=== PATIENT | male | born 1965 | race Caucasian/White ===

== ENCOUNTER 2021-10-14 19:26 | Emergency (ER) | payer OTHER, SELFPAY ==
[2021-10-14 21:06] VITALS: BP 156/99; PULSE 92; RESP 18; TEMP 36.7; O2SAT 98; BMI 28.7
--- NOTE | 2021-10-14 21:14 | HMH.EDUTC ---
[facility] [place] Disposition Clinical Impression: Viral syndrome Acute bronchitis Qualifiers: Bronchitis organism: unspecified organism Qualified Code(s): J20.9 - Acute bronchitis, unspecified Disposition: Home, Self-Care Condition on Discharge: Good Instructions: Acute Bronchitis, DI for Acute Bronchitis, DI for Viral Syndrome Additional Instructions: rink plenty of fluids. Take tylenol or ibuprofen for pain or fever. Take the medications as directed. Follow up with your regular doctor. GO TO THE ER FOR ANY WORSENING SYMPTOMS Don't start the oral steroids until tomorrow, since you had the shot here today. The cough medication (promethazine dm) will make you drowsy, so don't drive or operate heavy machinery after taking it. Prescriptions: Albuterol Sulfate [Albuterol Sulfate Hfa] 2 puffs IH Q6HP PRN 30 Days #1 each PRN Reason: Shortness Of Breath Transmission Status: Received by [facility] Promethazine/Dextromethorphan [Promethazine-Dm Syrup] 5 ml PO Q6HP PRN #240 ml PRN Reason: Cough Transmission Status: Received by [facility] Benzonatate [Benzonatate 100mg cap] 100 mg PO TIDP PRN #30 cap PRN Reason: Cough Transmission Status: Received by [facility] predniSONE [Deltasone 10mg tablet] 10 mg PO DAILY 9 Days #21 tab Transmission Status: Received by [facility] Azithromycin [Z-Amco 250mg Tab*] 250 mg PO UD DOSE PK #6 tab Transmission Status: Received by [facility] Referrals: Provider,Referral, [Primary Care Provider] - Forms: Work/School Release Time of Disposition: 21:56 Medical Decision Making - Medical Records Medical records reviewed: No: I reviewed the patient's medical records. - [place] Inquiry Pt receiving controlled substance: No Vital Signs: 10/14/21 21:06 10/14/21 21:57 Temperature 98.1 F 98.1 F Temperature Source Oral Pulse Rate 92 H Pulse Rate [Left] 92 H Respiratory Rate 18 18 Blood Pressure 156/99 H Blood Pressure [Right Arm] 156/99 H Blood Pressure Mean [Right Arm] 118 02 Sat by Pulse Oximetry 98 - Lab Data Lab results reviewed: Yes: I reviewed the patient's lab results. Lab Results 10/14/21 21:45: Chlamy pneumoniae PCR Not detected, Adenovirus (PCR) Not detected, B. pertussis DNA (PCR) Not detected, Coronavirus OC43 (PCR) Not detected, Coronavirus HKU1 (PCR) Detected A, Coronavirus 229E (PCR) Not detected, SARS-CoV-2 (PCR) Not detected, Coronavirus NL63 (PCR) Not detected, Human Metapneumovir PCR Not detected, Influenza A (H1) PCR Not detected, Influ A (H1N1/09) PCR Not detected, Influenza A (H3) PCR Not detected, Influenza Type A (PCR) Not detected, Influenza Type B (PCR) Not detected, M. pneumoniae (PCR) Not detected, Parainfluenza 1 (PCR) Not detected, Parainfluenza 2 (PCR) Not detected, Parainfluenza 3 (PCR) Not detected, Parainfluenza 4 (PCR) Not detected, RSV (PCR) Not detected, Entero/Rhino (PCR) Not detected Orders (Tests/Meds): ED MEDICATIONS Discontinued Medications Generic Name Dose Route Start Last Admin Trade Name Freq PRN Reason Stop Dose Admin Azithromycin 500 mg 10/14/21 21:46 10/14/21 21:50 Azithromycin 250mg Tablet PO 10/14/21 21:47 500 mg ONCE ONE Administration Ondansetron HCl 4 mg 10/14/21 21:45 10/14/21 21:50 Ondansetron 4mg Odt SL 10/14/21 21:46 4 mg ONCE ONE Administration Prednisone 40 mg 10/14/21 21:48 10/14/21 21:50 Prednisone 20mg Tab PO 10/14/21 21:49 40 mg ONCE ONE Administration [facility] [place] HPI - General Stated complaint: sick Time Seen by Provider: 10/14/21 21:14 - History of Present Illness Provider Complaint: HE c/o chest congestion, cough, body aches and feeling bad for the past 5 days. - Related Data Previous Rx's Medication Instructions Recorded Albuterol Sulfate [Albuterol 2 puffs IH Q6HP PRN 30 Days #1 each 10/14/21 Sulfate Hfa] Azithromycin [Z-Maco 250mg Tab*] 250 mg PO UD DOSE PK #6 tab 10/14/21 [place]
[2021-10-14 21:50] LABS: Adenovirus,PCR Not Detected (NotDetected); Coronavirus 229E Not Detected (NotDetected); Coronavirus NL63 Not Detected (NotDetected); Coronavirus OC43 Not Detected (NotDetected); Human Metapneumovirus Not Detected (NotDetected); Influenza A, PCR Not Detected (NotDetected); Influenza AH1, 2009 Not Detected (NotDetected); Influenza AH1, PCR Not Detected (NotDetected); Influenza AH3,PCR Not Detected (NotDetected); Influenza B, PCR Not Detected (NotDetected); Parainfluenza 1, PCR Not Detected (NotDetected); Parainfluenza 2, PCR Not Detected (NotDetected); Parainfluenza 3, PCR Not Detected (NotDetected); Parainfluenza 4, PCR Not Detected (NotDetected); Rhinovirus/Enterovirus Not Detected (NotDetected)
[2021-10-14 21:52] LABS: Bordetella Pertussis Not Detected (NotDetected); Chlamydophila Pneumoniae, PCR Not Detected (NotDetected); Coronavirus 19, PCR Not Detected (NotDetected); Mycoplasma Pneumoniae, PCR Not Detected (NotDetected)
[2021-10-14 21:57] VITALS: BP 156/99; PULSE 92; RESP 18; TEMP 36.7
[2021-10-14 23:17] LABS: Coronovirus HKU1,PCR Detected (NotDetected); Respiratory Syncytial Virus Not Detected (NotDetected)
== END 2021-10-14 21:59 | disposition home or self-care (01) ==
PROVIDERS: Emergency Provider Nurse Practitioner Family
DX: B34.2 Coronavirus infection, unspecified (principal); J20.9 Acute bronchitis, unspecified
CPT/HCPCS: 87581; 87632; 87798; 99213; C9803; G0463; U0003; U0005

== ENCOUNTER 2021-10-20 20:08 | Emergency (ER) | payer OTHER, SELFPAY ==
[2021-10-20 20:18] VITALS: BP 144/107; PULSE 96; RESP 22; TEMP 36.6; O2SAT 100; BMI 27.9
--- NOTE | 2021-10-20 20:18 | XR_ITS ---
PROCEDURE INFORMATION: Exam: XR Chest Exam date and time: 10/20/2021 8:26 PM Age: 55 years old Clinical indication: Cough TECHNIQUE: Imaging protocol: XR of the chest. Views: 2 views. COMPARISON: No relevant prior studies available. FINDINGS: Lungs: Unremarkable. No consolidation. Pleural spaces: Unremarkable. No pleural effusion. No pneumothorax. Heart/Mediastinum: Unremarkable. No cardiomegaly. Bones/joints: Degenerative changes of the shoulders. IMPRESSION: No acute findings.
--- NOTE | 2021-10-20 20:53 | HMH.EDUTC ---
[facility] [place] Disposition Clinical Impression: Viral syndrome Acute bronchitis Qualifiers: Bronchitis organism: unspecified organism Qualified Code(s): J20.9 - Acute bronchitis, unspecified Disposition: Home, Self-Care Condition on Discharge: Serious Instructions: DI for Acute Bronchitis Additional Instructions: Drink plenty of fluids. Take tylenol or ibuprofen for pain or fever. Take the medications as directed. Follow up with your regular doctor. GO TO THE ER FOR ANY WORSENING SYMPTOMS Finish the prednisone (steroids) that you are on. Prescriptions: Cefdinir [Omnicef 300mg Capsule] 300 mg PO BID #20 cap Transmission Status: Received by [facility] Referrals: Provider,Referral, [Primary Care Provider] - Forms: Work/School Release Time of Disposition: 21:00 Medical Decision Making - Medical Records Medical records reviewed: No: I reviewed the patient's medical records. - [place] Inquiry Pt receiving controlled substance: No Vital Signs: 10/20/21 20:18 10/20/21 21:01 Temperature 97.8 F 97.8 F Temperature Source Oral Pulse Rate 96 H Pulse Rate [Left] 96 H Respiratory Rate 22 22 Blood Pressure 144/107 H Blood Pressure [Right Arm] 144/107 H Blood Pressure Mean [Right Arm] 119 02 Sat by Pulse Oximetry 100 [facility] [place] HPI - General Stated complaint: SOB,COUGH Time Seen by Provider: 10/20/21 20:54 Mode of Arrival: Ambulatory Source of Information: Patient Limitations: No Limitations Description of Symptoms (Recalled from Triage Doc. by RN): pt c/o weakness, SOA and a cough. pt was seen here 10/16. pt states he feels like he is drowning. HEENT Symptoms (Recalled from RN notes): No Resp Symptoms (Recalled from RN notes): No Skin Symptoms (Recalled from RN notes): No MS Symptoms (Recalled from RN notes): No Functional Status (Recalled from RN notes): wnl - History of Present Illness Provider Complaint: He states that since he was here last he has not got much better. He continues to have a productive cough with yellowish sputum. He has shortness of breath if he walks very much. - Related Data Previous Rx's Medication Instructions Recorded Albuterol Sulfate [Albuterol 2 puffs IH Q6HP PRN 30 Days #1 each 10/14/21 Sulfate Hfa] Azithromycin [Z-Maco 250mg Tab*] 250 mg PO UD DOSE PK #6 tab 10/14/21 Benzonatate [Benzonatate 100mg 100 mg PO TIDP PRN #30 cap 10/14/21 cap] Promethazine/Dextromethorphan 5 ml PO Q6HP PRN #240 ml 10/14/21 [Promethazine-Dm Syrup] predniSONE [Deltasone 10mg tablet] 10 mg PO DAILY 9 Days #21 tab 10/14/21 Cefdinir [Omnicef 300mg Capsule] 300 mg PO BID #20 cap 10/20/21 Allergies Allergy/AdvReac Type Severity Reaction Status Date / Time Penicillins Allergy Verified 10/14/21 21:16 - Worker's Comp Is this a Worker's Comp case?: No [facility] History - Hepatitis A Screen Drug use history?: No High risk sexual behaviors?: No History of sexually transmitted infection?: No Currently employed?: No Childcare worker?: No Do you have indoor plumbing?: Yes Do you have electricity?: Yes Attestation statement:: This patient has been screened for Hepatitis A risk factors. I have reviewed the patient's past medical history: Yes ROS Obtained: Yes All systems reviewed & no additional complaints - Constitutional Constitutional: Reports as per HPI - Eyes Eyes: Denies eye discharge - ENT Ears, Nose, Mouth, and Throat: Reports as per HPI - Cardiovascular Cardiovascular: Denies chest pain - Respiratory Respiratory: Reports chest congestion, Reports cough, Denies dyspnea, Reports dyspnea on exertion, Denies stridor, Denies wheezing Physical Exam - General General appearance: alert, in no apparent distress - Head Head exam: atraumatic, normocephalic, normal inspection - Eye Eye exam: Present: normal appearance, PERRL, EOMI - ENT ENT exam: Present: normal exam, normal oropharynx, mucous membranes moist, TM's normal
[2021-10-20 21:01] VITALS: BP 144/107; PULSE 96; RESP 22; TEMP 36.6
== END 2021-10-20 21:07 | disposition home or self-care (01) ==
PROVIDERS: Emergency Provider Nurse Practitioner Family
DX: J20.9 Acute bronchitis, unspecified (principal); B34.9 Viral infection, unspecified
CPT/HCPCS: 71046; 99213; G0463

== ENCOUNTER → 2022-08-24 12:41 | Outpatient (CLI) | payer OTHER, SELFPAY ==
[2022-08-25 17:44] LABS: Amphetamine/Metha Screen,Urine Negative ng/ml (<1000); Barbiturates Screen,Urine Negative ng/ml (<200); Benzodiazepines Screen,Urine Negative ng/ml (<200); Cannabinoid Screen,Urine Negative ng/ml (<50); Cocaine Screen,Urine Negative ng/ml (<300); Opiate Screen,Urine Negative ng/ml (<300); Phencyclidine Screen,Urine Negative ng/ml (<25)
[2022-08-25 23:39] LABS: Methadone Screen,Urine Negative ng/ml (<300)
== END ==
PROVIDERS: Visit Provider Nurse Practitioner Family
DX: F10.10 Alcohol abuse, uncomplicated (principal); F15.10 Other stimulant abuse, uncomplicated; F43.10 Post-traumatic stress disorder, unspecified; F31.9 Bipolar disorder, unspecified
CPT/HCPCS: 80305

== ENCOUNTER → 2022-09-21 17:23 | Outpatient (CLI) | payer OTHER, SELFPAY ==
[2022-09-21 20:08] LABS: Amphetamine/Metha Screen,Urine Negative ng/ml (<1000); Barbiturates Screen,Urine Negative ng/ml (<200)
[2022-09-21 20:09] LABS: Benzodiazepines Screen,Urine Negative ng/ml (<200); Cannabinoid Screen,Urine Negative ng/ml (<50)
[2022-09-21 20:10] LABS: Cocaine Screen,Urine Negative ng/ml (<300)
[2022-09-21 20:11] LABS: Methadone Screen,Urine Negative ng/ml (<300); Opiate Screen,Urine Negative ng/ml (<300)
[2022-09-21 20:12] LABS: Phencyclidine Screen,Urine Negative ng/ml (<25)
== END ==
PROVIDERS: Visit Provider Nurse Practitioner Family
DX: F10.10 Alcohol abuse, uncomplicated (principal); F15.10 Other stimulant abuse, uncomplicated; F43.10 Post-traumatic stress disorder, unspecified; F31.9 Bipolar disorder, unspecified
CPT/HCPCS: 80305

== ENCOUNTER → 2022-09-30 20:34 | Outpatient (CLI) | payer OTHER, SELFPAY ==
[2022-09-30 21:33] LABS: Barbiturates Screen,Urine Negative ng/ml (<200)
[2022-09-30 21:34] LABS: Benzodiazepines Screen,Urine Negative ng/ml (<200)
[2022-09-30 21:35] LABS: Amphetamine/Metha Screen,Urine Negative ng/ml (<1000); Cocaine Screen,Urine Negative ng/ml (<300)
[2022-09-30 21:36] LABS: Cannabinoid Screen,Urine Negative ng/ml (<50); Methadone Screen,Urine Negative ng/ml (<300)
[2022-09-30 21:37] LABS: Phencyclidine Screen,Urine Negative ng/ml (<25)
[2022-09-30 21:38] LABS: Opiate Screen,Urine Negative ng/ml (<300)
== END ==
PROVIDERS: PCP Nurse Practitioner Family; Visit Provider Nurse Practitioner Family
DX: F10.10 Alcohol abuse, uncomplicated (principal); F15.10 Other stimulant abuse, uncomplicated; F43.10 Post-traumatic stress disorder, unspecified; F31.9 Bipolar disorder, unspecified; F17.200 Nicotine dependence, unspecified, uncomplicated
CPT/HCPCS: 80305

== ENCOUNTER → 2022-10-12 21:55 | Outpatient (CLI) | payer OTHER, SELFPAY | PROVIDERS: Visit Provider Nurse Practitioner Family | DX: F10.10 Alcohol abuse, uncomplicated (principal) ==

== ENCOUNTER 2022-10-20 20:48 | Emergency (ER) | payer OTHER, SELFPAY ==
[2022-10-20 20:50] VITALS: BP 152/91; PULSE 96; RESP 18; TEMP 36.6; O2SAT 96; BMI 27.2
--- NOTE | 2022-10-20 21:02 | XR_ITS ---
PROCEDURE INFORMATION: Exam: XR Left Hand Exam date and time: 10/20/2022 9:01 PM Age: 56 years old Clinical indication: Pain; Finger(s); Patient HX: Injury to left 3rd digit while working on a car. TECHNIQUE: Imaging protocol: Radiologic exam of the left hand. Views: 3 or more views. COMPARISON: No relevant prior studies available. FINDINGS: Bones/joints: Moderate soft tissue swelling of the 3rd PIP joint without acute osseous abnormality. Soft tissues: See Bones/joints finding. IMPRESSION: Moderate soft tissue swelling of the 3rd PIP joint without acute osseous abnormality.
--- NOTE | 2022-10-20 21:23 | HMH.EDSKAF ---
Discharge Plan Disposition Patient Disposition: Home, Self-Care Prescriptions Prescriptions: New sulfamethoxazole-trimethoprim [Bactrim DS] 800-160 mg Tablet 1 tab PO Q12H Qty: 20 0RF cephalexin [cephalexin] 500 mg capsule 500 mg PO TID Qty: 30 0RF Referrals Follow up/Referrals: Provider,Referral, [Primary Care Provider] - See instructions Clinical Impressions Clinical Impression: Cellulitis Instructions Patient Instructions: Cellulitis Discharge ED Provider: Robby (ED)Cornel Skin/Abscess/FB HPI General Chief complaint: Skin/Abscess/Foreign Body Stated complaint: ao 10/20@0850 Injured Left index finger Time Seen by Provider: 10/20/22 21:23 Mode of Arrival: Ambulatory Source of Information: Patient and Medical Record Limitations: No Limitations Description of Symptoms (Recalled from ER Triage Doc. by RN): 56 M presents with an injury to his left middle finger that happened while working on a car this AM. He states he was attempting to ratchet something down, he placed alot of force downwards and his hand punched into the frame. There is a pea size open wound that is oozing serosanguineous fluid. The finger itself is red, swollen, and streaking to the top portion of his hand. Patient denies fever or chills. History of Present Illness HPI narrative: injury lt middle finger and has drainge and reddness to lt hand MD complaint: other (reddness and drainage ) Onset (ago): hour(s) Tetanus up to date: yes Location: L hand Severity: moderate Related Data Previous Rx's Medication Instructions Recorded cephalexin 500 mg capsule 500 mg PO TID #30 caps 10/20/22 sulfamethoxazole 800 1 tab PO Q12H #20 tabs 10/20/22 mg-trimethoprim 160 mg tablet (Bactrim DS) Allergies Allergy/AdvReac Type Severity Reaction Status Date / Time Penicillins Allergy Verified 10/14/21 21:16 [facility] Disclaimer: The information contained in this section may have been updated after the patient was seen, as this information can be updated by other users. Social History Smoking Status: Current every day smoker alcohol intake: never current occupational status: employed Travel in the last 8 weeks: None ROS Obtained: Yes All systems reviewed & no additional complaints except as documented Physical Exam General General appearance: alert Head Head exam: normocephalic Eye Eye exam: Present PERRL and EOMI ENT ENT exam: Present mucous membranes moist Neck Neck exam: Present trachea midline Respiratory Respiratory exam: Absent respiratory distress Cardiovascular Cardiovascular exam: Present regular rate Abdominal Exam Abdominal exam: Present soft Expanded Upper Extremity Exam Left: Hand exam: Present tenderness, swelling, erythema and other (streaking noted and abrasion lt middle finger at pip jt - neg kanavels signs ) Neurological Exam Neurological exam: Present alert, oriented X3, CN II-XII intact and motor sensory deficit Psychiatric Psychiatric exam: Present normal affect Skin Skin exam: Absent rash Medical Decision Making Medical Records Medical records reviewed: Yes I reviewed the patient's medical records. [place]ro Inquiry Pt receiving controlled substance: No Vital Signs: 10/20/22 20:50 Temperature 97.9 F Temperature Source Oral Pulse Rate [Left] 96 H Respiratory Rate 18 Blood Pressure [Right Arm] 152/91 H Blood Pressure Mean [Right Arm] 111 Blood Pressure Source [Right Arm] Automatic Cuff Blood Pressure Position [Right Arm] Sitting 02 Sat by Pulse Oximetry 96 Oxygen Delivery Method Room Air Lab Data Lab results reviewed: Yes I reviewed the patient's lab results. Orders (Tests/Meds): ED MEDICATIONS Generic Name Dose Route Start Last Admin Trade Name Freq PRN Reason Stop Dose Admin Cephalexin HCl 500 mg 10/20/22 21:29 10/20/22 21:31 Cephalexin 500mg Capsule PO 10/20/22 21:30 500 mg ONCE ONE Administration Mupirocin 22 gm 10/21/22 09:
[2022-10-20 21:37] VITALS: BP 150/88; PULSE 88; RESP 18; TEMP 36.6; O2SAT 99
== END 2022-10-20 21:47 | disposition home or self-care (01) ==
PROVIDERS: Emergency Provider Emergency Medicine
DX: L03.114 Cellulitis of left upper limb (principal); S61.203A Unspecified open wound of left middle finger without damage to nail, initial encounter; W22.8XXA Striking against or struck by other objects, initial encounter
CPT/HCPCS: 73130; 87070; 87077; 87186; 87205; 99283; 99284

== ENCOUNTER → 2022-10-24 16:23 | Outpatient (CLI) | payer OTHER, SELFPAY ==
[2022-10-24 18:28] LABS: Amphetamine/Metha Screen,Urine Negative ng/ml (<1000)
[2022-10-24 18:29] LABS: Barbiturates Screen,Urine Negative ng/ml (<200)
[2022-10-24 18:30] LABS: Benzodiazepines Screen,Urine Negative ng/ml (<200); Cannabinoid Screen,Urine Negative ng/ml (<50)
[2022-10-24 18:31] LABS: Cocaine Screen,Urine Negative ng/ml (<300)
[2022-10-24 18:32] LABS: Methadone Screen,Urine Negative ng/ml (<300); Opiate Screen,Urine Negative ng/ml (<300)
[2022-10-24 18:33] LABS: Phencyclidine Screen,Urine Negative ng/ml (<25)
== END ==
PROVIDERS: Visit Provider Nurse Practitioner Family
DX: F10.10 Alcohol abuse, uncomplicated (principal); F15.10 Other stimulant abuse, uncomplicated; F43.10 Post-traumatic stress disorder, unspecified; F31.9 Bipolar disorder, unspecified
CPT/HCPCS: 80305

== ENCOUNTER → 2022-12-16 15:42 | Outpatient (CLI) | payer OTHER, SELFPAY ==
[2022-12-16 18:09] LABS: Benzodiazepines Screen,Urine Negative ng/ml (<200)
[2022-12-16 18:11] LABS: Barbiturates Screen,Urine Negative ng/ml (<200); Cannabinoid Screen,Urine Negative ng/ml (<50)
[2022-12-16 18:12] LABS: Cocaine Screen,Urine Negative ng/ml (<300)
[2022-12-16 18:13] LABS: Methadone Screen,Urine Negative ng/ml (<300); Opiate Screen,Urine Negative ng/ml (<300)
[2022-12-16 18:14] LABS: Phencyclidine Screen,Urine Negative ng/ml (<25)
[2022-12-23 09:19] LABS: Amphetamine Positive (.); Amphetamine (GC/MS) 1222 ng/mL (Cutoff=500); Amphetamines Positive (.); Methamphetamine Positive (.); Methamphetamine (GC/MS) 2741 ng/mL (Cutoff=500)
== END ==
PROVIDERS: Visit Provider Neuromusculoskeletal Medicine, Sports Medicine
DX: F11.20 Opioid dependence, uncomplicated (principal)
CPT/HCPCS: 80305; 80324